=== PATIENT | female | born 2000 | race Caucasian/White ===

== ENCOUNTER 2019-04-07 17:02 | Emergency (ER) | payer OTHER ==
[~2019-04-07] VITALS: Ht 160 cm; Wt 67.1 kg
[~2019-04-07 17:02] MED LIST: AUGMENTIN 875-1 EACH PO; FLUTICASONE PRO16 GM NS; KEFLEX500 MG PO; KUVAN PO; NORCO 5-325 TA1 EACH PO; SPRINTEC1 EACH PO; VENTOLIN HFA18 GM INH; ZOLOFT25 MG PO
[2019-04-07] MEDS ORDERED: CEPHALEXIN500 MG PO (19:42)
== END 2019-04-07 20:07 | disposition home or self-care (01) ==
LOC: ED 17:02
DX: L60.0 Ingrowing nail (principal); L08.9 Local infection of the skin and subcutaneous tissue, unspecified; Z79.899 Other long term (current) drug therapy
CPT/HCPCS: 99283

== ENCOUNTER 2021-03-30 07:45 | Day surgery (SDC) | payer OTHER ==
[~2021-03-30] VITALS: Ht 157.5 cm; Wt 66.8 kg
[~2021-03-30 07:45] MED LIST changes: +CEPHALEXIN500 MG PO; +OMEPRAZOLE20 MG PO; +ZOLOFT50 MG PO
--- NOTE | 2021-03-30 10:15 | NUR ---
03/30/21 1015 Aleksandra Roberts 0959 PT ARRIVED IN PACU NON RESPONSIVE TO NOXIOUS STIMULI. [address] AT BEDSIDE. PT WITH NO C/O'S.
--- NOTE | 2021-03-30 10:34 | NUR ---
PATIENT BACK IN DAY SURGERY ROOM FROM PACU. DENIES PAIN. DENIES NAUSEA. TOLERATING SIPS OF WATER. MOUSTACHE DRESSING IN PLACE WITH SMALL AMOUNT OF RED DRAINAGE. VS CHECKED. IV SITE WNL. SCDs ON. NO OTHER NEEDS AT THIS TIME. MOTHER AT BEDSIDE. CALL LIGHT WITHIN REACH.
[2021-03-30] MEDS ORDERED: CEPHALEXIN500 M1 PO (10:43)
[2021-03-30] MEDS ORDERED: HYDROCODON-ACE1 EA10 PO (10:44)
--- NOTE | 2021-03-30 12:19 | OR ---
[facility] [place] [facility] [address], [place] [address] Signed DATE OF OPERATION: 03/30/2021 SURGEON: J Carlos Pearl MD PREOPERATIVE DIAGNOSIS: Septal deformity. POSTOPERATIVE DIAGNOSIS: Septal deformity. PROCEDURE: Septoplasty. ANESTHESIA: General LMA; Gualberto BARR. PREOPERATIVE HISTORY: Karen is a 20-year-old young lady, who has had chronic nasal obstruction. She has had surgery several years ago by myself on her nose consisting basically of a septoplasty inferior turbinates. She has had initial improvement, but subsequently over the last year or 2, she has had nasal congestion, obstruction, recurrence of septal deformity, unresponsive to appropriate medications, nasal steroid sprays, antihistamines, and decongestants. She is taken to the operating room for revision septoplasty. OPERATIVE PROCEDURE AND FINDINGS: After informed consent, the patient was taken to the operating room, placed in supine position where general LMA anesthesia was induced. The patient and procedure were verified. The patient received preoperative intranasal oxymetazoline and intravenous Ancef. Headlight speculum exam of the nasal cavity showed significant septal deformity bilaterally, obstructive turbinates were small. No other obvious pathology. 1% lidocaine with epi was injected in the mucoperichondrium on the left and right sides. The left hemitransfixion incision was then made, submucoperichondrial flap elevated on the left side. Incision was then made through septal cartilage to the right side about a cm posterior to the mucosal incision. A submucoperichondrial pocket was elevated on the right. All deviated septal bone and cartilage were then excised with Yobani. The airway was improved, septum medialized, obstruction removed. The incision was then closed with 4-0 interrupted chromic. Hemostasis was verified. Packing was then placed. Equal amount of trimmed Merocel one piece each side tied coated with Neosporin tied anteriorly over a pad. The pharynx was then suctioned clear of blood secretions. The Electronically Signed By: J CARLOS PEARL MD 03/30/21 1219 PATIENT NAME: KAREN TROTTER OPERATIVE REPORT DATE OF : [birth year] REPORT #: [id number] PHYSICIAN: J CARLOS PEARL MD PCP: ROSIO BLANTON MD REPORT IS CONFIDENTIAL AND NOT TO BE RELEASED WITHOUT AUTHORIZATION [facility] [address] [place] [id number] Signed patient was awakened, extubated, transported to the recovery room in good condition. No complications. BLOOD LOSS: Minimal. SPECIMEN: No specimen. DRAINS: No drains. PACKING: One piece of Merocel to each nostril. J Carlos Pearl MD GC/MODL /[id number] Copies: ~ Electronically Signed By: J CARLOS PEARL MD 03/30/21 1219 PATIENT NAME: KAREN TROTTER OPERATIVE REPORT DATE OF : [birth year] REPORT #: [id number] PHYSICIAN: J CARLOS PEARL MD PCP: ROSIO BLANTON MD REPORT IS CONFIDENTIAL AND NOT TO BE RELEASED WITHOUT AUTHORIZATION
--- NOTE | 2021-03-30 13:23 | NUR ---
1220: MOUSTACHE DRESSING CHANGED ABOUT EVERY 15 - 20 MINUTES. PATIENT AND MOTHER EDUCATED ON HOW TO CHANGE MOUSTACHE DRESSING. VS CHECKED. C/O BURNING IN SINUSES. DECLINES PAIN MEDICATION AT THIS TIME. PATIENT ASSISTED OOB AND TO WALK AROUND ROOM. GAIT STEADY. PATIENT GETTING DRESSED WITH HELP FROM MOTHER. 1240: PATIENT REQUESTED PAIN MEDICATION. MEDICATED WITH 1 TAB OF HYDROCODONE. PATIENT SITTING ON SIDE OF BED. MOUSTACHE DRESSING CHANGED. 1300: PATIENT TOLERATING HYDROCODONE. IV DC'D WNL. TIP INTACT. DRESSING APPLIED. MOUSTACHE DRESSING CHANGED AGAIN. PATIENT DISCHARGED TO HOME WITH MOTHER VIA WHEELCHAIR.
== END 2021-03-30 13:00 | disposition home or self-care (01) ==
LOC: DS 07:45 → OPS 07:45 → DS 09:30 → OPS 09:30
PROVIDERS: ATTEND Otolaryngology
PROC: 09BM0ZZ Excision of Nasal Septum, Open Approach (ICD-10-PCS; principal; 2021-03-30 09:30)
DX: J34.2 Deviated nasal septum (principal); J32.9 Chronic sinusitis, unspecified; J34.89 Other specified disorders of nose and nasal sinuses; J45.998 Other asthma; K21.9 Gastro-esophageal reflux disease without esophagitis; R01.1 Cardiac murmur, unspecified; Z91.048 Other nonmedicinal substance allergy status
CPT/HCPCS: 00160; J0131; J0690; J1100; J2001; J2250; J2405; J2704; J3010; J7121

== ENCOUNTER 2021-03-31 22:04 | Emergency (ER) | payer OTHER ==
[~2021-03-31] VITALS: Ht 157.5 cm; Wt 66.7 kg
[~2021-03-31 22:04] MED LIST changes: +CEPHALEXIN500 M1 PO; +HYDROCODON-ACE1 EA10 PO
== END 2021-04-01 00:12 | disposition home or self-care (01) ==
LOC: ED 22:04
DX: J95.89 Other postprocedural complications and disorders of respiratory system, not elsewhere classified (principal); R22.9 Localized swelling, mass and lump, unspecified; J45.909 Unspecified asthma, uncomplicated; K21.9 Gastro-esophageal reflux disease without esophagitis; Z79.899 Other long term (current) drug therapy
CPT/HCPCS: 99283